=== PATIENT | male | born 1960 | race Caucasian/White ===

== ENCOUNTER 2018-03-26 15:16 | Emergency (ER) | payer OTHER ==
[~2018-03-26] VITALS: Ht 182.9 cm; Wt 77.1 kg
[~2018-03-26 15:16] MED LIST: DILAUDID2 M1 PO
--- NOTE | 2018-03-26 16:02 | ED GENERAL ADULT ---
History of Present Illness General Chief Complaint: Chest Pain Stated Complaint: STABBING PAIN TO CHEST X 10SECS YESTERDAY MORNING Source: patient Exam Limitations: no limitations Vital Signs & Intake/Output Vital Signs & Intake/Output Vital Signs Date Time Temp Pulse Resp B/P B/P Pulse O2 O2 Flow FiO2 Mean Ox Delivery Rate 03/26 1724 Room Air 03/26 1524 98.6 102 18 160/88 98 Room Air Allergies Coded Allergies: No Known Allergies (04/22/16) Reconcile Medications Hydromorphone HCl (Dilaudid) 2 MG TABLET 1-2 TAB PO Q6H PRN PAIN Triage Note: 57 YO MALE TO TRIAGE C/O 10 SECOND EPISODE OF CHEST PAIN AND DIAPHORESIS YESTERDAY AM. STATES SINCE THAT EPISODE HE HAS FELT "FINE" DENIES ANY PAIN/SOB AT THIS TIME. Triage Nurses Notes Reviewed? yes Onset: Abrupt Duration: seconds Timing: resolved HPI: 57-year-old male with no known past medical history presenting status post an episode of chest pain that occurred yesterday. 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 Triage note mentions there was diaphoresis, however patient states that he had been sweating all day due to physical activity, and there was no increased sweating during the episode. Denies shortness of breath, nausea, vomiting, pain to the arm/jaw/back. No prior cardiac history. Has never had cardiac stress testing. Denies leg swelling, recent travel/recent surgeries, hormone use, 0 to smoking, cough, hemoptysis, personal/family history of DVT. Patient is asymptomatic on arrival. (Albertina Haynes) Past History Travel History Traveled to [place] past 21 day No Medical History Any Pertinent Medical History? see below for history Neurological: NONE EENT: NONE Cardiovascular: NONE Respiratory: NONE Gastrointestinal: NONE Hepatic: NONE Renal: KIDNEY STONES Musculoskeletal: NONE Psychiatric: NONE Endocrine: NONE Blood Disorders: NONE Cancer(s): NONE Surgical History Surgical History: N Psychosocial History What is your primary language Greenlandic Tobacco Use: Never used Family History Family History, If Any: FATHER (Coronary artery disease). Hx Contributory? No (Albertina Haynes) Review of Systems Review of Systems Constitutional: Reports: no symptoms. EENTM: Reports: no symptoms. Respiratory: Reports: no symptoms. Cardiovascular: Reports: chest pain. Denies: edema, orthopena, palpitations. GI: Reports: no symptoms. Genitourinary: Reports: no symptoms. Musculoskeletal: Reports: no symptoms. Skin: Reports: no symptoms. Neurological/Psychological: Reports: no symptoms. Hematologic/Endocrine: Reports: no symptoms. Immunologic/Allergic: Reports: no symptoms. (Albertina Haynes) Physical Exam Physical Exam General Appearance: well developed/nourished, no apparent distress, alert, awake , comfortable Head: atraumatic, normal appearance Eyes: Bilateral: normal appearance. Neck: normal inspection Respiratory: normal breath sounds, lungs clear Cardiovascular: regular rate/rhythm, normal peripheral pulses Gastrointestinal: soft, non-tender Back: normal inspection Extremities: normal inspection Neurologic/Psych: awake, alert, oriented x 3, normal gait, normal mood/affect Skin: intact, normal color, warm/dry Core Measures ACS in differential dx? Yes CVA/TIA Diagnosis: No Sepsis Present: No Sepsis Focused Exam Completed? No (Rony KELLY,Albertian) Progress Differential Diagnoses I considered the following diagnoses in my evaluation of the patient: [ACS versus angina versus nonspecific chest pain, low concern for PE versus pneumothorax versus aortic dissection] Plan of Care: Orders Procedure Date/time Status EKG 03/26 1717 Active TROPONIN LEVEL 03/26 1603 Complete PHOSPHORUS 03/26 1603 Complete MAGNESIUM 03/26 1603 Complete COMPREHENSIVE METABOLIC PANEL 03/26 1603 Complete CBC WITHOUT DIFFERENTIAL 03/26 1603 Complete EKG 03/26 1524 Active Laboratory Tests 03/26/ 1629: Anion Gap 11, Estimated GFR > 60, BUN/Creatinine Ratio 30.0 H, Glucose 122 H, Calcium 9.7, Phosphorus 2.6, Magnesium 2.0, Total Bilirubin 0.6, AST 19, ALT 22, Alkaline Phosphatase 57, Troponin I < 0.01, Total Protein 7.5, Albumin 4.6, Globulin 2.9, Albumin/Globulin Ratio 1.6, CBC w Diff NO MAN DIFF REQ, RBC 4.83, MCV 92.5, MCH 31.6 H, MCHC 34.2, RDW 13.7, MPV 8.0, Gran % 74.2, Lymphocytes % 17.2 L, Monocytes % 6.3, Eosinophils % 1.8, Basophils % 0.5, Absolute Granulocytes 8.1 H, Absolute Lymphocytes 1.9, Absolute Monocytes 0.7 H, Absolute Eosinophils 0.2, Absolute Basophils 0.1 Initial EKG showed sinus tach with no ischemic changes, repeat EKG showed normal sinus rhythm, also nonischemic. Troponin negative. Labs unremarkable. Chest x -ray unremarkable. Patient has remained asymptomatic while in the ED. Will refer to cardiology for outpatient evaluation and stress testing. Patient given contact information for cardiology and instructed to call for an appointment. Given strict return precautions. Discussed with ED attending. Initial ED EKG: rhythm (sinus), rate (104), no ST T wave changes (Albertina Haynes) Departure Departure Disposition: HOME OR SELF CARE Condition: Stable Clinical Impression Primary Impression: Chest pain Referrals: Janell PARKER,Elizabeth Rizo (PCP/Family) Leyla Mendez MD Additional Instructions: Follow-up with your primary care provider for reevaluation. Return to the emergency department for any new or worsening symptoms. Departure Forms: Customer Survey General Discharge Information (Albertina Haynes) PA/SPRUE KNOCKER Co-Sign Statement Statement: ED Attending supervision documentation- x I saw and evaluated the patient. I have also reviewed all the pertinent lab results and diagnostic results. I agree with the findings and the plan of care as documented in the PA's/SPRUE KNOCKER's documentation. [] I have reviewed the ED Record and agree with the PA's/SPRUE KNOCKER's documentation. [] Additions or exceptions (if any) to the PAs/SPRUE KNOCKER's note and plan are summarized below: [] (Javy PARKER,Davis) Critical Care Note Critical Care Note Critical Care Time: non-applicable (Albertina Haynes)
[2018-03-26 16:45] LABS: ABSOLUTE BASOPHIL COUNT 0.1 /CUMM (0.0-0.2); ABSOLUTE EOSINOPHIL COUNT 0.2 /CUMM (0.0-0.7); ABSOLUTE GRANULOCYTE CT 8.1 /CUMM (1.4-6.5); ABSOLUTE LYMPH COUNT 1.9 /CUMM (1.2-3.4); ABSOLUTE MONOCYTE COUNT 0.7 /CUMM (0.10-0.60); BASOPHIL % 0.5 % (0.0-2.0); EOSINOPHIL % 1.8 % (0-5); GRANULOCYTE % 74.2 % (42.2-75.2); HEMATOCRIT 44.6 % (42-52); MEAN CORPUSCULAR HGB 31.6 PG (27.0-31.0); MEAN CORPUSCULAR HGB CONC 34.2 G/DL (33.0-37.0); MEAN CORPUSCULAR VOLUME 92.5 FL (80.0-94.0); PLATELET COUNT 327 /CUMM (130-400); RBC DISTRIBUTION WIDTH 13.7 % (11.5-14.5); RED BLOOD CELL CT 4.83 /CUMM (4.70-6.10); WHITE BLOOD CELL COUNT 10.9 /CUMM (4.8-10.8)
--- NOTE | 2018-03-26 16:46 | RADIOLOGY REPORT ---
EXAMINATION: XR CHEST CLINICAL INFORMATION: Chest pain COMPARISON: None TECHNIQUE: 2 views of the chest were obtained. FINDINGS: Cardia mediastinal silhouette is within normal limits. No acute airspace opacity. Lungs are clear. Bony thorax is intact. Degenerative changes thoracic spine. Age indeterminate minor decrease in the anterior vertebral body height mid thoracic vertebra. IMPRESSION: No acute pulmonary disease. Thoracic spondylosis. Age indeterminate mild compression midthoracic vertebra.
[2018-03-26 17:45] VITALS: BP 148/79
== END 2018-03-26 18:00 ==
LOC: ERH 15:16
PROVIDERS: Physician Assistant
DX: R07.9 Chest pain, unspecified (principal)
CPT/HCPCS: 71046; 93005; 93010